=== PATIENT | female | born 1950 ===

== ENCOUNTER 2017-05-06 12:04 | Emergency (ER) | payer OTHER ==
[~2017-05-06] VITALS: Ht 167.6 cm; Wt 86.2 kg
[2017-05-06] MEDS ORDERED: SYNTHROID175 MCG (12:37)
[2017-05-06] MEDS ORDERED: METFORMIN HCL500 MG (12:38)
[2017-05-06] MEDS ORDERED: COZAAR100 MG (12:38)
== END 2017-05-06 14:22 | disposition home or self-care (01) ==
LOC: ER 12:04
DX: I10 Essential (primary) hypertension (principal)

== ENCOUNTER 2022-05-24 07:59 | Outpatient (CLI) | payer OTHER ==
[~2022-05-24 07:59] MED LIST: COZAAR100 MG; METFORMIN HCL500 MG; SYNTHROID175 MCG
== END 2022-05-24 13:12 | disposition home or self-care (01) ==
LOC: LAB 07:59
DX: E11.65 Type 2 diabetes mellitus with hyperglycemia (principal); E78.2 Mixed hyperlipidemia; I11.9 Hypertensive heart disease without heart failure; R19.5 Other fecal abnormalities; E03.8 Other specified hypothyroidism